=== PATIENT | male | born 1970 | race Caucasian/White ===

== ENCOUNTER 2016-09-15 12:32 | Emergency (ER) | payer OTHER ==
[2016-09-15 13:07] LABS: BLOOD UREA NITROGEN 9 mg/dL (7-18); CALCIUM 8.9 mg/dL (8.7-10.7); CARBON DIOXIDE 18 mmol/L (21-32); CREATININE 0.7 mg/dL (0.6-1.3); GLUCOSE,RANDOM 158 mg/dL (70-99); SODIUM 136 mmol/L (136-145)
[2016-09-15 13:27] LABS: WHITE BLOOD COUNT 8.8 x10_3/ml (4.2-9.1)
[2016-09-15 13:28] LABS: GRAN # 5.7 10_X3_UL (1.8-5.4); HEMATOCRIT 42.3 % (40-51); HEMOGLOBIN 14.2 g/dl (13.7-17.5); LYMPH # 2.2 10_X3_UL (1.3-3.6); MEAN CORPUSCULAR HEMOGLOBIN 32.9 pg (27.0-33.0); MEAN CORPUSCULAR HGB CONC 33.6 g/dl (32.0-36.0); MEAN CORPUSCULAR VOLUME 97.9 fl (79-92); PLATELET COUNT 341 x10_3/UL (163-337); RED BLOOD COUNT 4.32 x10_6/ul (4.6-6.1); RED CELL DISTRIBUTION WIDTH 12.9 % (11.6-14.4)
[2016-09-15 13:29] LABS: GRAN % 65.1 % (34.0-67.9); LYMPH % 25.1 % (21.8-53.1); MIXED # 0.9 10_X3_UL (0-12); MIXED % 9.8 % (1.7-9.3)
== END 2016-09-15 14:10 | disposition short-term general hospital (02) ==
LOC: ER 12:32
PROVIDERS: Emergency Medicine
PROC: 3E0234Z Introduction of Serum, Toxoid and Vaccine into Muscle, Percutaneous Approach (ICD-10-PCS; principal; 2016-09-15)
DX: T21.22XA Burn of second degree of abdominal wall, initial encounter (principal); T21.21XA Burn of second degree of chest wall, initial encounter; T31.11 Burns involving 10-19% of body surface with 10-19% third degree burns; X03.0XXA Exposure to flames in controlled fire, not in building or structure, initial encounter; Y92.009 Unspecified place in unspecified non-institutional (private) residence as the place of occurrence of the external cause; F17.220 Nicotine dependence, chewing tobacco, uncomplicated; E11.9 Type 2 diabetes mellitus without complications; I10 Essential (primary) hypertension; Z88.5 Allergy status to narcotic agent; Z23 Encounter for immunization; Z79.899 Other long term (current) drug therapy; Z79.84 Long term (current) use of oral hypoglycemic drugs
CPT/HCPCS: 36415; 80048; 85025; 90471; 90715; 94664; 96365; 96375; 96376; 99070; 99284-25; J1170